=== PATIENT | female | born 2000 ===

== ENCOUNTER 2021-04-30 13:55 | Emergency (ER) ==
[~2021-04-30] VITALS: Ht 160 cm; Wt 53.6 kg
[2021-04-30] MEDS ORDERED: IRON325T2 PO (14:05)
== END 2021-04-30 21:26 | disposition left against medical advice (07) ==
LOC: M ED 13:55
DX: Z53.21 Procedure and treatment not carried out due to patient leaving prior to being seen by health care provider (principal)